=== PATIENT | female | born 1995 | race Caucasian/White ===

== ENCOUNTER → 2020-06-30 | Day surgery (SDC) | payer OTHER | END | disposition home or self-care (01) | LOC: JRADIR 09:45 | PROVIDERS: ATTEND Internal Medicine | PROC: 0G9G3ZX Drainage of Left Thyroid Gland Lobe, Percutaneous Approach, Diagnostic (ICD-10-PCS; principal; 2020-06-30) | DX: C73 Malignant neoplasm of thyroid gland (principal) | CPT/HCPCS: 76942; 88173; 88305-TC ==